=== PATIENT | female | born 1995 ===

== ENCOUNTER 2019-11-13 11:59 | Emergency (ER) | payer OTHER ==
[~2019-11-13] VITALS: Ht 162.6 cm; Wt 68.0 kg
[2019-11-13] MEDS ORDERED: TUSNEL LIQUID178 ML PO (18:51)
[2019-11-13] MEDS ORDERED: ZITHROMAX500 MG PO (18:51)
== END 2019-11-13 18:59 | disposition home or self-care (01) ==
LOC: ER 11:59
DX: J06.9 Acute upper respiratory infection, unspecified (principal)